=== PATIENT | female | born 1950 | race Hispanic/Latino ===

== ENCOUNTER 2017-06-28 21:34 | Emergency (ER) | payer MEDICARE, OTHER ==
[2017-06-28] MEDS ORDERED: ACETAMINOPHEN EXTRA STRENGTH 500 MG TABLET ONE (22:55)
[2017-06-28] MEDS ORDERED: DIAZEPAM 5 MG TABLET ONE (22:55)
== END 2017-06-29 00:57 | disposition home or self-care (01) ==
LOC: EDH 21:34
DX: S13.8XXA Sprain of joints and ligaments of other parts of neck, initial encounter (principal); S40.011A Contusion of right shoulder, initial encounter; E11.9 Type 2 diabetes mellitus without complications; I10 Essential (primary) hypertension; E78.5 Hyperlipidemia, unspecified; Z79.4 Long term (current) use of insulin; Z88.6 Allergy status to analgesic agent; W18.39XA Other fall on same level, initial encounter; Y93.89 Activity, other specified; Y92.098 Other place in other non-institutional residence as the place of occurrence of the external cause; Y99.8 Other external cause status
CPT/HCPCS: 70450; 72125; 73130

== ENCOUNTER → 2020-05-25 | Day surgery (SDC) | payer OTHER ==
[2020-05-25 08:54] LABS: INR 0.91 (0.85-1.15); PROTHROMBIN TIME 9.8 SEC (9.6-11.6)
[2020-05-25 08:55] LABS: PARTIAL THROMBOPLASTIN TIME 24.8 SEC (26.3-35.5)
--- NOTE | 2020-05-25 10:00 | NUR ---
U/S GD RT AXILLA BX PROCEDURE PERFORMED BY DR Javier MCCALLUM. PUNCTURE SITE RT AXILLA AND PATIENT TOLERATED PROCEDURE WELL. SPECIMEN X 5 COLLECTED AND SENT TO LAB. END OF PROCEDURE AT 0930. BIOPSY NEEDLE REMOVED AND DRESSING APPLIED. NO BLEEDING NOTED. DISCHARGE INSTRUCTIONS GIVEN TO PATIENT AND VERBALIZED UNDERSTANDING. DISCHARGED VIA AMBULATION AT 1000 AAO X3 WITH NO C/O PAIN.
== END ==
LOC: DAH 07:53 → EDSTATUS 08:00
PROVIDERS: ATTEND Internal Medicine Medical Oncology
DX: C50.911 Malignant neoplasm of unspecified site of right female breast (principal); C77.3 Secondary and unspecified malignant neoplasm of axilla and upper limb lymph nodes
CPT/HCPCS: 36415; 38505; 76942; 85610; 85730; A4215 ×2